=== PATIENT | female | born 1970 | race Two or more races ===

== ENCOUNTER 2020-05-16 10:14 | Outpatient (AMBR) | payer MEDICARE, MEDICAID, SELFPAY ==
--- NOTE | 2020-05-16 10:20 | PT.OIERPT ---
PT OP Initial Eval Patient Information Visit Reasons: power wheelchair Medical Diagnosis: power W/C evaluation Start of Care: 05/16/20 Date of Onset: 8 weeks ago Initial Assessment Subjective Pt is 50 yr old female with extensive PMH presenting to therapy for power W/C evaluation. She recently went to the ER with LE pain that turned out to be pulmonary embolism. She wants a power W/C to help mobility at home and to be able to grocery shop. She has limited mobility and doesn't drive due to siezures. She lives alone in a mobile home with W/C ramp. She is trying to get a caregiver but doesn't have one. She is ind with dressing, grooming nad bathing unless her back locks up and then she isn't. Pt thinks she can walk a couple of blocks on a good day. Difficulty for standing more than 5 mins to do dishes due to LBP. 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 Open heart sx age 3 and 12, siezure disorder, epidermolysis bullosa Objective See W/C eval hard copy for objective findings Assessment Pt presentation consistent with mobility deficits limited by LBP, LE pain and weakness and would benefit from power scooter or W/C to improve community and in-home mobility. Pt mobility can't be resolved by use of walker, cane or manual W/CShe has limited standing tolerance due to pain and a scooter may help her get around since she doesn't drive. Short Term and Custodial Goals Eval and d/C Treatment Plan Eval and d/C Certification Dates: 04/25/20 to 06/15/20 Office Procedures PT Procedures PT Date of Service: 05/16/20 OP PT Eval Mod Complex 30 minutes: Yes
== END 2020-05-23 23:59 | disposition home or self-care (01) ==
PROVIDERS: PCP Nurse Practitioner Family; Referring Provider Nurse Practitioner Family; Visit Provider Nurse Practitioner Family
DX: Z46.89 Encounter for fitting and adjustment of other specified devices (principal); M54.5 Low back pain; R53.1 Weakness; B18.2 Chronic viral hepatitis C; I89.0 Lymphedema, not elsewhere classified; Q81.0 Epidermolysis bullosa simplex; E11.9 Type 2 diabetes mellitus without complications; M48.02 Spinal stenosis, cervical region; I10 Essential (primary) hypertension; G40.909 Epilepsy, unspecified, not intractable, without status epilepticus
CPT/HCPCS: 97162